=== PATIENT | male | born 1960 | race Caucasian/White ===

== ENCOUNTER → 2016-11-02 | Outpatient (CLI) | payer OTHER | END | disposition home or self-care (01) | LOC: GMAH 10:16 | PROVIDERS: ATTEND Family Medicine | DX: Z12.5 Encounter for screening for malignant neoplasm of prostate (principal); Z00.00 Encounter for general adult medical examination without abnormal findings ==

== ENCOUNTER → 2018-04-06 | Outpatient (CLI) | payer OTHER ==
--- NOTE | 2018-04-06 11:50 | CT ---
EXAM DESCRIPTION: Head CLINICAL HISTORY: DIZZINESS COMPARISON: None Available. TECHNIQUE: Contiguous axial images of the brain were obtained without the administration of intravenous contrast. This exam was performed according to our departmental dose-optimization program, which includes automated exposure control, adjustment of the mA and/or kV according to patient size and/or use of iterative reconstruction technique. FINDINGS: There is no acute intracranial hemorrhage or mass effect. Ventricular system is within normal limits. There is adequate parker-white matter differentiation. There is no skull fracture. There is mucoperiosteal thickening of the left maxillary sinus compatible with chronic sinusitis changes. There is atherosclerosis. IMPRESSION: No acute intracranial abnormalities. Electronically signed by: Zeke Hagen MD 04/06/2018 11:49 AM CDT
== END ==
LOC: CT 11:18
PROVIDERS: ATTEND Nurse Practitioner Family
DX: R42 Dizziness and giddiness (principal)

== ENCOUNTER 2018-06-22 10:08 | Emergency (ER) | payer OTHER ==
[2018-06-22] MEDS ORDERED: SODIUM CHLORIDE 0.9% 1000ML 1,000 ML IVS ONE (10:33)
[2018-06-22] MEDS ORDERED: KETOROLAC TROMETHAMINE INJ 30 MG/ML VIAL IV ONE (10:33)
--- NOTE | 2018-06-22 10:38 | ED.PDOC ---
History of Present Illness - General Chief Complaint: Abdominal Pain Time Seen by Provider: 06/22/18 10:32 Information Source: patient Exam Limitations: no limitations - History of Present Illness Initial Comments: patient comes in today with severe 10/10 abdominal pain. Patient states he awoke at 5 this morning with some mild discomfort by 6 and had localized to the epigastric areawith slight radiation to the right upper quadrant and straight through to his back. Patient states the pain is sharp, severe, and not worsening nor improving with movement. Patient had some dry heaving this morning but no current nausea. Patient has denied constipation and states he's had a normal bowel movement yesterday. He does have a history of some heartburn and takes Prilosec [id number]-shluyfk for it. Patient denies any fever , chills, cough or cold symptoms. He was in his normal usual health before going to bed and did not alter his usual activity including no increased alcohol use, activity, or diet changes. Patient has a past medical history for hyperlipidemia and hypertension. He does not smoke but drinks 5-6 glasses of wine a day and does not take illicit substances. Patient has no known drug allergies. Patient's only abdominal surgery has been an umbilical hernia repair that was several years ago and has been well healed without complications thus far. Abdominal Pain Onset Location: epigastric Pain Radiation: back Quality: severe, steady Timing/Duration: 4-6 hours, getting worse Improving Factors: nothing Worsening Factors: nothing Associated Symptoms: nausea/vomiting Review of Systems - Review of Systems Constitutional: States: no symptoms reported. Denies: chills, fever EENTM: States: no symptoms reported. Denies: eye pain, ear pain, nose pain, throat pain Respiratory: States: no symptoms reported. Denies: cough, short of breath, wheezing Cardiology: States: no symptoms reported. Denies: chest pain, edema, palpitations Gastrointestinal/Abdominal: States: abdominal pain, nausea. Denies: constipation, diarrhea, vomiting Genitourinary: States: no symptoms reported. Denies: dysuria, frequency, hematuria Musculoskeletal: States: back pain Skin: States: no symptoms reported Neurological: States: no symptoms reported Past Medical History (General) - Patient Medical History Hx MRSA: Yes - neck 2008 MRSA Source:: Wound Family Medical History - Family History Mother Family History: No Known Physical Exam - Physical Exam General Appearance: Alert, Restless Eyes, Ears, Nose, Throat Exam: PERRL/EOMI, normal ENT inspection, TMs normal, pharynx normal Neck: non-tender, full range of motion, supple Respiratory: chest non-tender, lungs clear, normal breath sounds, no respiratory distress Cardiovascular/Chest: normal peripheral pulses, regular rate, rhythm, no edema, no gallop, no murmur Gastrointestinal/Abdominal: soft, distended, other - TTP at the epigastric area with on rebound and no guarding, hypoactive BS Back Exam: normal inspection, no CVA tenderness, no vertebral tenderness Extremity: normal range of motion, non-tender Neurologic: alert, oriented x 3 Progress - Progress Progress: patient is feeling much better. Pain is now moderate 5/5 and improving. Patient understands he should stick to a low fat diet. Discussed need for follow up with PCP to discuss if needs surgical consult. Ultram for pain over the weekend. Return to ER for increased pain, intractable emesis, or change in symptoms. Would get OTC Gas x and Maalox and take TID as well. 06/22/18 12:37 - Results/Orders Results/Orders: 06/22/18 10:33 Sodium Chloride 0.9% 1000ML [Ns 1000 ml] 1,000 ml IVS ONCE 06/22/18 11:02 URINALYSIS Stat Laboratory Results WBC 8.4 K/mm3 (4.8-10.8) 06/22/18 10:37 RBC 4.09 M/mm3 (4.70-6.10) L 06/22/18 10:37 Hgb 13.4 gm/dL (14.0-18.0) L 06/22/18 10:37 Hct 39.0 % (42.0-52.0) L 06/22/18 10:37 MCV 95.4 fl (80.0-94.0) H 06/22/18 10:37 MCH 32.7 pg (27.0-31.0) H 06/22/18 10:37 MCHC 34.4 g/dL (33.0-37.0) 06/22/18 10:37 RDW 13.0 % (11.5-14.5) 06/22/18 10:37 Plt Count 368 K/mm3 (130-400) 06/22/18 10:37 MPV 7.3 fl (7.40-10.4) L 06/22/18 10:37 Absolute Neuts (auto) 6.80 K/uL (1.8-6.8) 06/22/18 10:37 Absolute Lymphs (auto) 1.00 K/uL (1.0-3.4) 06/22/18 10:37 Absolute Monos (auto) 0.50 K/uL (0.2-0.8) 06/22/18 10:37 Absolute Eos (auto) 0.00 K/uL (0.0-0.4) 06/22/18 10:37 Absolute Basos (auto) 0.10 K/uL (0.0-0.1) 06/22/18 10:37 Neutrophils % 80.6 % (42.0-78.0) H 06/22/18 10:37 Lymphocytes % 12.0 % (20.0-50.0) L 06/22/18 10:37 Monocytes % 5.9 % (2.0-9.0) 06/22/18 10:37 Eosinophils % 0.3 % (1.0-5.0) L 06/22/18 10:37 Basophils % 1.2 % (0.0-2.0) 06/22/18 10:37 Sodium 139 mmol/L (135-145) 06/22/18 10:37 Potassium 3.8 mmol/L (3.6-5.0) 06/22/18 10:37 Chloride 106 mmol/L (101-111) 06/22/18 10:37 Carbon Dioxide 25 mmol/L (21-31) 06/22/18 10:37 Anion Gap 11.8 (12-18) L 06/22/18 10:37 BUN 11 mg/dL (7-18) 06/22/18 10:37 Creatinine 0.86 mg/dL (0.6-1.3) 06/22/18 10:37 BUN/Creatinine Ratio 12.8 (10-20) 06/22/18 10:37 Random Glucose 132 mg/dL (70-105) H 06/22/18 10:37 Serum Osmolality 278.8 mOsm/L (275-295) 06/22/18 10:37 Calcium 9.9 mg/dL (8.4-10.2) 06/22/18 10:37 Total Bilirubin 0.6 mg/dL (0.2-1.0) 06/22/18 10:37 AST 39 IU/L (10-42) 06/22/18 10:37 ALT 33 IU/L (10-60) 06/22/18 10:37 Alkaline Phosphatase 40 IU/L (42-121) L 06/22/18 10:37 Serum Total Protein 7.2 gm/dL (6.4-8.2) 06/22/18 10:37 Albumin 4.1 g/dl (3.2-5.5) 06/22/18 10:37 Globulin 3.1 gm/dL (2.3-3.5) 06/22/18 10:37 Albumin/Globulin Ratio 1.3 (1.1-1.9) 06/22/18 10:37 Amylase 57 U/L (28-100) 06/22/18 10:37 Lipase 32 U/L (22-51) 06/22/18 10:37 CT of abdomen and pelvis: fatty liver disease and cholelithiasis without evidence of obstruction or appendicitis. Departure - Departure Clinical Impression: Biliary colic Disposition: Discharge to Home or Self Care Condition: Fair Departure Forms: ED Discharge - Pt. Copy, Patient Portal Self Enrollment Instructions: DI for Abdominal Pain-Adult Diet: low fat, low cholesterol Referrals: Med Mccann MD [Primary Care Provider] - 1-2 Weeks Prescriptions: Tramadol HCl [Ultram] 50 mg PO TID PRN 5 Days #15 tab PRN Reason: Pain Home Medications: Ambulatory Orders Bumetanide [Bumex] 1 mg PO DAILY 06/22/18 Ezetimibe-Simvastatin [Vytorin 10-40 mg] 1 tab PO DAILY 06/22/18 Fish Oil 06/22/18 Garlic 06/22/18 Lisinopril 40 mg PO DAILY 06/22/18 Multiple Vitamins W/ Minerals [Multivitamin Adults] 1 tab PO DAILY 06/22/18 Nifedipine [Nifedipine ER] 30 mg PO DAILY 06/22/18 Omeprazole [Omeprazole] 40 mg .ROUTE DAILY 06/22/18 Tramadol HCl [Ultram] 50 mg PO TID PRN 5 Days #15 tab 06/22/18 Turmeric 06/22/18 Vitamin C 06/22/18 Additional Instructions: ollow up with PCP Sunday to discuss if needs surgical consult. Ultram for pain over the weekend. Return to ER for increased pain, intractable emesis, or change in symptoms. Would get OTC Gas x and Maalox and take TID as well.
[2018-06-22 10:46] VITALS: TEMP 98.9
--- NOTE | 2018-06-22 11:07 | CT ---
PROCEDURE: Abdoment/Pelvis w/o Contrast HISTORY: abominal pain Indication: Same as above Comparison: None Technique: CT of the abdomen and pelvis was done without intravenous contrast. Images were obtained from the lung base to the level of the pubic symphysis in axial plane, followed by orthogonal sagittal and coronal reconstruction. Oral contrast was not given for the study. This exam was performed according to our departmental dose-optimization program, which includes automated exposure control, adjustment of the mA and/or KV according to the patient's size and/or use of iterative reconstruction technique. FINDINGS: Images through the lung bases do not show any focal infiltrates or pleural effusions. There is tiny intraluminal gallstone in the neck of the gallbladder. There is fatty metamorphosis of the liver The pancreas, spleen and the bilateral adrenal glands appear unremarkable, given the limitation of lack of intravenous contrast. The bilateral kidneys do not show any evidence of hydronephrosis or nephrolithiasis. The bilateral ureters and the bilateral periureteral soft tissues and fat planes are unremarkable. The urinary bladder is unremarkable, without any evidence of wall thickening, calculi or filling defects. The small bowel appears unremarkable, without any evidence of small bowel obstruction or bowel wall thickening. There is no CT evidence of acute appendicitis, pericecal inflammatory change or ileocecal mesenteric adenitis. The ileocecal junction appears unremarkable. There is no CT evidence of acute colonic diverticulitis or colitis or large bowel obstruction. There is no pathological lymphadenopathy in the retroperitoneum or in the pelvic region. There is no evidence of free fluid or free air in the abdomen or the pelvic region. There is no clinically significant abdominal aortic aneurysm. There is no clinically significant inguinal or ventral hernia. The visualized lumbar spine shows multilevel degenerative change. The paravertebral soft tissues are unremarkable. The remainder of the pelvic structures are unremarkable. IMPRESSION: Fatty metamorphosis of the liver without hepatomegaly and cholelithiasis Electronically signed by: Paul Velasco MD 06/22/2018 11:05 AM HEALTH ANALYST Workstation: [id number]
[2018-06-22] MEDS ORDERED: ALUM & MAG HYDROX-SIMETHICONE 30 ML, LIDOCAINE VISCOUS 2% 15 ML PO ONE ×4 (11:13→11:32)
[2018-06-22] MEDS ORDERED: ALUM & MAG HYDROX-SIMETHICONE 30 ML UD ONE ×2 (11:15→11:34)
[2018-06-22] MEDS ORDERED: LIDOCAINE HCL 2% (MOUTH-THROAT) 15 ML UD ONE ×2 (11:15→11:34)
[2018-06-22 13:03] VITALS: BP 131/68; O2SAT 96
== END 2018-06-22 12:55 | disposition home or self-care (01) ==
LOC: ER 10:08
DX: K80.20 Calculus of gallbladder without cholecystitis without obstruction (principal); K76.0 Fatty (change of) liver, not elsewhere classified; E78.5 Hyperlipidemia, unspecified; I10 Essential (primary) hypertension; Z87.19 Personal history of other diseases of the digestive system; Z98.890 Other specified postprocedural states
CPT/HCPCS: 36415; 74176; 80053; 81001; 82150; 83690; 85025; J1885; J7030

== ENCOUNTER 2018-06-23 23:37 | Inpatient (IN) | payer OTHER ==
--- NOTE | 2018-06-24 00:18 | ED.PDOC ---
History of Present Illness - General Chief Complaint: Abdominal Pain Stated Complaint: abdominal pain Time Seen by Provider: 06/24/18 00:18 Information Source: patient Exam Limitations: no limitations - History of Present Illness Initial Comments: Haseeb Schultz 57 y/o male seen initially early Sunday am with biliary colic and cholelithiasis from CT ABD/p done showing gallstone gallbladder neck and was sent home after pain eased up a little bit but tonight had sharp stabbing pain mid abdomen as well as distention.Had small watery BM after taking MOM.Had felt nauseated so ate a little bit since this am. Abdominal Pain Onset Location: generalized abdomen Pain Radiation: no radiation Quality: intermittent, sharpness, stabbing Timing/Duration: 24 hours Improving Factors: nothing Worsening Factors: nothing Associated Symptoms: fever/chills, nausea/vomiting Review of Systems - Review of Systems Constitutional: States: no symptoms reported EENTM: States: no symptoms reported Respiratory: States: no symptoms reported Cardiology: States: no symptoms reported Gastrointestinal/Abdominal: States: see HPI Genitourinary: States: no symptoms reported Musculoskeletal: States: no symptoms reported Skin: States: no symptoms reported Past Medical History (General) - Patient Medical History Hx Stroke: No Hx of COPD: No Hx Congestive Heart Failure: No Hx Hypertension: Yes Hx Thyroid Disease: No Hx Diabetes: No Hx Gastroesophageal Reflux: Yes Hx MRSA: Yes - neck 2008 MRSA Source:: Wound Surgical History: other - hernia repair - Vaccination History Hx Influenza Vaccination: Yes - Social History Hx Physical Abuse: No Hx Emotional Abuse: No - Triage Comment ED Triage Comment: upper abdominal pain. Seen in ER yesterday for same, returned tonyue Family Medical History - Family History Mother Family History: No Known Physical Exam - Physical Exam General Appearance: Alert, Anxious, No apparent distress Eyes, Ears, Nose, Throat Exam: normal ENT inspection, pharynx normal Neck: non-tender, supple, normal inspection Respiratory: lungs clear, normal breath sounds, no respiratory distress Cardiovascular/Chest: normal peripheral pulses, regular rate, rhythm, no murmur Peripheral Pulses: No deficit Gastrointestinal/Abdominal: distended, tenderness, other - tense Back Exam: normal inspection, no CVA tenderness, no vertebral tenderness Extremity: normal inspection, no calf tenderness Skin Exam: normal color, warm/dry Progress - Progress Progress: 06/24/18 02:33 Vital Signs - 8 hr 06/24/18 00:01 Temperature 102.9 F H Pulse Rate [ 140 H Right] Respiratory 22 Rate Blood Pressure 149/104 [Left Arm] O2 Sat by Pulse 94 L Oximetry - Results/Orders Results/Orders: 06/24/18 00:19 IV Care:Saline Lock per Protoc QSHIFT URINALYSIS Stat 06/24/18 01:10 NG [Tube(s):Nasogastric,Insertion] PRN 06/24/18 02:30 BLOOD CULTURE Stat 06/24/18 02:40 Piperacillin/Tazobactam [Zosyn] 3.375 gm Sodium Chloride 0.9% 100Ml [NS (NACL 0.9%) 100ml] 100 ml IVPB ONCE Laboratory Results - last 24 hr 06/24/18 06/24/18 06/24/18 00:19 00:19 00:58 WBC 17.4 H RBC 4.24 L Hgb 13.9 L Hct 40.9 L MCV 96.2 H MCH 32.7 H MCHC 34.1 RDW 13.1 Plt Count 342 MPV 7.2 L Absolute Neuts (auto) 15.20 H Absolute Lymphs (auto) 1.10 Absolute Monos (auto) 1.00 H Absolute Eos (auto) 0.00 Absolute Basos (auto) 0.10 Neutrophils % 87.1 H Lymphocytes % 6.5 L Monocytes % 5.7 Eosinophils % 0.1 L Basophils % 0.6 PT 11.8 H INR 1.18 H PTT (SP) 28.8 Sodium 134 L Potassium 3.3 L Chloride 102 Carbon Dioxide 21 Anion Gap 14.3 BUN 11 Creatinine 0.95 BUN/Creatinine Ratio 11.6 Random Glucose 181 H D Serum Osmolality 272.2 L Lactic Acid 1.5 Calcium 8.7 Magnesium 1.1 L Total Bilirubin 1.6 H D Direct Bilirubin 0.4 H Indirect Bilirubin 1.2 H AST 24 ALT 23 Alkaline Phosphatase 45 Creatine Kinase 125 CK-MB (CK-2) 1.8 CK-MB (CK-2) % Not Reportable Troponin I 0.03 Serum Total Protein 7.4 Albumin 4.0 Lipase 23 D Discuss test result with patient and hospital admit. - EKG/XRAY/CT XRAY: abdomen - non specific bowel gas pattern Departure - Departure Clinical Impression: Abdominal distention, Gallstone ileus Abdominal pain Qualifiers: Abdominal location: generalized Qualified Code(s): R10.84 - Generalized abdominal pain Cholelithiasis NOS Qualifiers: Cholelithiasis location: gallbladder Cholecystitis presence: without cholecystitis Biliary obstruction: without biliary obstruction Qualified Code(s) : K80.20 - Calculus of gallbladder without cholecystitis without obstruction Time of Disposition: 03:06 Disposition: Admit Patient Condition: Fair Departure Forms: Patient Portal Self Enrollment Referrals: Med Mccann MD [Primary Care Provider] - 1-2 Weeks Home Medications: Ambulatory Orders Bumetanide [Bumex] 1 mg PO DAILY 06/22/18 Ezetimibe-Simvastatin [Vytorin 10-40 mg] 1 tab PO DAILY 06/22/18 Fish Oil 06/22/18 Garlic 06/22/18 Lisinopril 40 mg PO DAILY 06/22/18 Multiple Vitamins W/ Minerals [Multivitamin Adults] 1 tab PO DAILY 06/22/18 Nifedipine [Nifedipine ER] 30 mg PO DAILY 06/22/18 Omeprazole [Omeprazole] 40 mg .ROUTE DAILY 06/22/18 Tramadol HCl [Ultram] 50 mg PO TID PRN 5 Days #15 tab 06/22/18 Turmeric 06/22/18 Vitamin C 06/22/18 Decision To Admit - Decistion To Admit Decision to Admit Reason: Admit from ER Decision to Admit Date: 06/24/18 - D/W Dr. Todd-Surgeon;Palak Bartlett-ANP/ Hospitalist Decision to Admit Time: 03:03
[2018-06-24] MEDS ORDERED: SODIUM CHLORIDE 0.9% 1000ML 1,000 ML IVS ONE (00:19)
[2018-06-24] MEDS ORDERED: KETOROLAC TROMETHAMINE INJ 30 MG/ML VIAL IV ONE (00:19)
[2018-06-24] MEDS ORDERED: ONDANSETRON INJ 4 MG/2 ML VIAL IV ONE (00:32)
[2018-06-24] MEDS ORDERED: MAGNESIUM SULFATE PREMIX 2GM 2 GM in PREMIX BAG 1 BAG IVPB ONE (00:59)
[2018-06-24] MEDS ORDERED: MAGNESIUM SULFATE PREMIX 2GM 50 ML IVPB ONE (01:26)
[2018-06-24] MEDS ORDERED: fentaNYL CITRATE INJ 50 MCG/ML AMP IV ONE (02:03)
[2018-06-24] MEDS ORDERED: PROMETHAZINE HCL INJ 25 MG/ML VIAL IM ONE (02:04)
[2018-06-24] MEDS ORDERED: PIPERACILLIN/TAZOBACTAM 4.5 GM in SODIUM CHLORIDE 0.9% 100ML 100 ML IVPB ONE (02:31)
--- NOTE | 2018-06-24 02:36 | RAD ---
EXAM: Acute abdominal series. INDICATION: Abdominal pain, acute. COMPARISON: None. FINDINGS: Cardiac silhouette: Unremarkable. Tamara: Unremarkable. Lobar consolidation: None. Pleural effusion: None. Pneumothorax: None. Other: None. Intraperitoneal free air: Negative. Bowel: The nasogastric tube is in satisfactory position. There is gaseous distention of the colon. No dilated loops of small bowel are identified. Bones: Unremarkable. Other: None. IMPRESSION: 1. Nonspecific, nonobstructed bowel gas pattern. Electronically signed by: Noe Newby MD 06/24/2018 2:35 AM [facility] Workstation: [id number]
[2018-06-24] MEDS ORDERED: PIPERACILLIN/TAZOBACTAM 3.375 GM in SODIUM CHLORIDE 0.9% 100ML 100 ML IVPB ONE (02:40)
[2018-06-24] MEDS ORDERED: SODIUM CHLORIDE 0.9% 100ML 100 ML IVPB ONE ×4 (02:41→19:58)
[2018-06-24] MEDS ORDERED: PIPERACILLIN/TAZOBACTAM 3.375 GM VIAL IVPB ONE ×4 (02:41→19:57)
--- NOTE | 2018-06-24 03:09 | HP ---
SUPERVISING PHYSICIAN: Prasanth Santacruz MD CHIEF COMPLAINT: Abdominal pain with some fever, chills and nausea for about one week. HISTORY OF PRESENT ILLNESS: This is a 57-year-old male patient who has had some diffuse abdominal pain over the last week or so. Sunday, he actually came to the Emergency Room and CT of the abdomen was done. CT at that time showed fatty metamorphosis of the liver without hepatomegaly with cholelithiasis. He was sent home and given some laxatives and then it progressively worsened to the point that he had several bouts of diarrhea in the last two days. He also had dry heaves with fever, chills and diffuse abdominal pain. His right side hurt much worse than his left side. He was seen again in the Emergency Room and had abdominal distention with stabbing pain , watery diarrhea. His WBCs were at 17,400 and he had a left shift on differential. Hemoglobin was 13.9 with hematocrit 40.9. Sodium was slightly low at 1.34 with potassium 3.3. Lactic acid was 1.5, bilirubin was high at 1.6 with 0.4 direct bilirubin and 1.2 indirect bilirubin. Liver enzymes were within normal limits. Lipase was 23. Urinalysis showed 100 urine protein, 15 urine ketones, positive urine nitrites, 3 to 5 urine WBCs and 2 urine bacteria. He was given some fluids. Blood cultures were drawn. Urine cultures were ordered. He was given some fluids and Zosyn as well as some Ketoralac and some Dilaudid. He started on Zosyn and pantoprazole. Dr. Todd was called from the Emergency Room and he agreed that I should admit the patient to the Floor and he would see the patient in consult. PAST MEDICAL HISTORY: 1. Gout. 2. Benign prostatic hypertrophy. 3. Hypertension. 4. Gastroesophageal reflux disease. 5. Hyperlipidemia. PAST SURGICAL HISTORY: 1. Umbilical hernia repair. 2. Right hand surgery. 3. Colonoscopy 9 years ago. OUTPATIENT MEDICATIONS: 1. Lisinopril. 2. Bumetanide. 3. Nifedipine. 4. Vytorin. 5. Omeprazole. ALLERGIES: NO KNOWN DRUG ALLERGIES. SOCIAL HISTORY: He quit smoking about 15 years ago. He drinks about 5 to 6 glasses of wine daily. He denies any illicit drug use. He lives in [place]. He is . REVIEW OF SYSTEMS: GENERAL: Positive for fatigue and fever. Negative for weight changes. HEENT: Negative for sinus symptoms, ear pain, vision changes or sore throat. RESPIRATORY: Negative for wheezing, coughing or shortness of breath. CARDIAC: Negative for chest pain, palpitations or tachycardia. GASTROINTESTINAL: As per history of present illness. GENITOURINARY: Negative for hematuria, dysuria or polyuria. SKIN: Negative for lesions or rashes. NEUROLOGIC: Negative for headache, dizziness or seizures. PHYSICAL EXAMINATION: VITAL SIGNS: Temperature 102.9 on admission. It is now 100.3. Heart rate was as high as 140, now 88 to 110. Blood pressure 125/75. Respiratory rate 18. O2 saturation 91% on room air. GENERAL: This is a 57-year-old male patient who is lying in his hospital bed. He is in no acute distress. HEENT: Normocephalic, atraumatic. Pupils are equal and reactive. Oropharynx is clear. NECK: Supple without mass. RESPIRATORY: Essentially clear to auscultation bilaterally. CHEST: There is equal rise and fall of the chest with inspiration and expiration. CARDIOVASCULAR: Regular rate and rhythm. Heart rate at times slightly tachycardic. GASTROINTESTINAL: Abdomen is soft, diffusely tender, more so in the right upper quadrant than the other four quadrants. Bowel sounds are positive. EXTREMITIES: No cyanosis, clubbing or edema. NEUROLOGIC: Awake, alert and oriented times three. LABORATORY: Labs and films are as per history of present illness. IMPRESSION: 1. Cholelithiasis with acute cholecystitis, being followed by Dr. Todd, general surgeon. 2. Urinary tract infection. 3. Gouty arthritis. 4. Hypertension. 5. Gastroesophageal reflux disease. 6. Hyperlipidemia. PLAN: We will admit the patient to the hospital. I have consulted Dr. Todd and he will do a cholecystectomy this morning. He has been NPO overnight and has received fluids. I have also restarted his home medications, but those will not start until he is after he is back from surgery. I will defer all operative issues per Dr. Todd. He has been continued on Zosyn that he received while in the Emergency Room. We will also monitor his cultures closely. Encourage good pulmonary hygiene. We will monitor the patient closely and follow as needed. [facility][id number] [facility]
[2018-06-24] MEDS ORDERED: SODIUM CHLORIDE 0.9% (FLUSH) 10 ML SYG IV PRN (04:04)
[2018-06-24] MEDS ORDERED: ONDANSETRON INJ 4 MG/2 ML VIAL IV PRN ×2 (04:04→13:02)
[2018-06-24] MEDS: IV SET AND CAP CHANGE INJ INJ SCH (04:30)
[2018-06-24] MEDS: KCL 40 MEQ/D5 1/2NS 1,000 ML IVS PRN ×3 (06:00→22:24)
[2018-06-24] MEDS: PIPERACILLIN/TAZOBACTAM 3.375 GM in SODIUM CHLORIDE 0.9% 100ML 100 ML IVPB SCH ×3 (06:01→22:24)
[2018-06-24] MEDS: PANTOPRAZOLE SODIUM IV 40 MG VIAL IV SCH (06:02)
[2018-06-24] MEDS: fentaNYL CITRATE INJ 50 MCG/ML AMP IV PRN (08:22)
[2018-06-24] MEDS: SODIUM CHLORIDE 0.9% (FLUSH) 10 ML SYG IV SCH ×2 (08:35→20:53)
[2018-06-24] MEDS ORDERED: HEPARIN SODIUM (PORCINE) 10,000 UNITS/ML VIAL ONE (09:49)
[2018-06-24] MEDS ORDERED: BUPIVACAINE 0.25% W/EPI 50 ML VIAL INJ ONE (09:49)
[2018-06-24] MEDS ORDERED: DEXAMETHASONE INJ 10 MG/ML VIAL IV ONE (10:00)
[2018-06-24] MEDS ORDERED: PROPOFOL 200 MG/20 ML VIAL IV ONE (10:00)
[2018-06-24] MEDS ORDERED: PHENYLEPHRINE INJ 1ML 10 MG/ML VIAL IV ONE (10:00)
[2018-06-24] MEDS ORDERED: SODIUM CHLORIDE 0.9% 50 ML VIAL INJ ONE (10:00)
[2018-06-24] MEDS ORDERED: raNITIdine HCL INJ 25 MG/ML VIAL IV ONE (10:00)
[2018-06-24] MEDS ORDERED: LIDOCAINE 1% 10 ML VIAL INJ ONE (10:00)
[2018-06-24] MEDS ORDERED: METOCLOPRAMIDE HCL INJ 10 MG/2 ML VIAL IV ONE (10:00)
[2018-06-24] MEDS ORDERED: ROCURONIUM BROMIDE 10 MG/ML VIAL ONE (10:39)
[2018-06-24] MEDS ORDERED: MIDAZOLAM INJ 2 MG/2 ML VIAL ONE (10:39)
[2018-06-24] MEDS ORDERED: fentaNYL CITRATE INJ 50 MCG/ML AMP ONE (10:39)
--- NOTE | 2018-06-24 10:47 | CONS ---
DATE OF CONSULTATION: 06/24/18 HISTORY OF PRESENT ILLNESS: The patient is a 57-year-old male who has had some abdominal discomfort for some time. On Sunday, it worsened after eating [place] food the night before where he had severe right upper quadrant pain with some radiation to the back. His white blood cell count and liver function tests were essentially normal at that time. He was discharged home with no instructions as to diet or otherwise. He came back to the Emergency Room early this morning. CT scan was obtained for the same symptoms which revealed a stone in the neck of the gallbladder with some inflammatory process. His bilirubin went up to 1.9. His white count was elevated and he was admitted with a presumed diagnosis of cholelithiasis and cholecystitis. PAST MEDICAL HISTORY: 1. Hypertension. 2. Hypercholesterolemia. PAST SURGICAL HISTORY: 1. Umbilical hernia repair. CURRENT MEDICATIONS: 1. Bumex. 2. Nifedipine. 3. Omeprazole. 4. Ultram. 5. Lisinopril. 6. Vytorin. 7. Garlic. 8. Ascorbic acid. 9. Tumeric. ALLERGIES: NO KNOWN DRUG ALLERGIES. FAMILY HISTORY: Positive for heart disease, cholesterol issues. SOCIAL HISTORY: The patient is and works in his [employer] business. He does not smoke. He does use alcohol, drinking wine on an almost daily basis. REVIEW OF SYSTEMS: There has been no weight loss. No history of jaundice. He does complain of abdominal distension. Uncertain as to whether or not he has had a colonoscopy in the past. PHYSICAL EXAMINATION: GENERAL: The patient is awake, alert, cooperative, in mild to moderate distress. VITAL SIGNS: Temperature 100.3. HEENT: Sclerae nonicteric. He has a nasogastric tube in his nostril. Mucous membranes moist. NECK: Without adenopathy. BACK: Without CVA tenderness. CHEST: Equal breath sounds anteriorly. ABDOMEN: Soft, distended, diffusely tender, worse in the right upper quadrant without mass. He has a well-healed surgical scar at the umbilicus from a hernia repair. RECTAL: Deferred. EXTREMITIES: Without cyanosis, clubbing or edema. LABORATORY: White count 16,000 this morning at 5. At midnight, it was 17. Hemoglobin is down to 13. Platelet count 308,000, 90% neutrophils. Chemistries revealed bilirubin of 1.9. It was 1.6 initially. Otherwise, his liver functions are within normal limits. Potassium 3.1, creatinine 1.15. CT scan from Sunday revealed an intraluminal gallstone in the neck of the gallbladder and fatty metamorphosis of the liver. There was no hydronephrosis or stones noted in the kidneys and ureters. A flat and upright abdominal x-ray at the time of admission revealed no significant pathology. ASSESSMENT: 1. Cholelithiasis with acute cholecystitis or at least biliary colic. PLAN: The risks, benefits and alternatives to laparoscopic cholecystectomy with cholangiography along with wedge biopsy of the liver for the fatty infiltration of the liver was discussed with the patient in the presence of his family. Questions were answered. We will proceed with cholecystectomy. He has been given Zosyn from the Emergency Room. This will be continued. [facility][id number] [facility]
[2018-06-24] MEDS ORDERED: SUCCINYLCHOLINE CHLORIDE 200 MG/10 ML VIAL ONE (11:01)
[2018-06-24] MEDS ORDERED: ELECTROLYTE-A 1,000 ML IVS ONE ×2 (11:02→11:39)
[2018-06-24] MEDS ORDERED: metroNIDAZOLE IV PREMIX 500MG 100 ML IVPB ONE ×2 (11:52→19:57)
[2018-06-24] MEDS ORDERED: HYDROmorphone HCL INJ 2 MG/ML VIAL ONE (11:56)
[2018-06-24] MEDS ORDERED: SUGAMMADEX SODIUM 200 MG/2 ML VIAL IV ONE (12:23)
[2018-06-24] MEDS ORDERED: HYDROmorphone HCL INJ 2 MG/ML VIAL IV PRN (13:02)
[2018-06-24] MEDS ORDERED: PIPERACILLIN/TAZOBACTAM 3.375 GM in SODIUM CHLORIDE 0.9% 100ML 100 ML IVPB SCH (13:30)
--- NOTE | 2018-06-24 17:54 | OP ---
DATE OF PROCEDURE: 06/24/18 PREOPERATIVE DIAGNOSIS: 1. Symptomatic cholelithiasis. 2. Fatty infiltration of the liver. POSTOPERATIVE DIAGNOSIS: 1. Symptomatic cholelithiasis. 2. Fatty infiltration of the liver. 3. Acute gangrenous cholecystitis. SURGICAL PROCEDURE: 1. Laparoscopic cholecystectomy with intraoperative cholangiography using fluoroscopy and wedge biopsy right lobe of the liver. SURGEON: Silver Todd M.D. EELER: None. ANESTHESIA: Local infiltration of 0.25% Marcaine with Epinephrine and general endotracheal anesthesia. INDICATION FOR SURGERY: The patient is a 57 year-old male who has had approximately a 48 hours history of right upper quadrant pain. He has a leukocytosis, mild fever and is quite uncomfortable. After the risks, benefits , and alternatives to cholecystectomy were discussed with the patient in the presence of his family, he was brought to the Surgical Suite today. He was given IV Zosyn preoperatively on the floor when he was admitted. FINDINGS AT TIME OF PROCEDURE: The gallbladder was gangrenous. There was a large amount of purulent drainage in the right upper quadrant. Upon examination , the gallbladder appeared to be perforated. In the area there was one small stone. Intraoperative cholangiography revealed free flow into the duodenum with no filling defects or strictures noted. DESCRIPTION OF PROCEDURE: After adequate general endotracheal anesthesia was obtained, the patient was prepped and draped in the usual sterile manner. A surgical time out was taken. The supraumbilical area was infiltrated with local anesthesia and a vertical incision was made with a sharp knife. Dissection was carried down to the midline fascia using blunt dissection. Traction sutures were placed on either side of the midline. A small incision was made in the midline fascia and the peritoneum was opened bluntly. Karl trocar was introduced under direct vision into the abdominal cavity and fixed in place with the 20 mL balloon. At this point, CO2 was insufflated until a pressure of 12 mmHg was reached and the abdomen was tympanitic in all four quadrants. When this was done, the laparoscope was introduced which revealed inflammatory changes in the right upper quadrant with the omentum stuck to the anterior abdominal wall and purulent drainage. No other obvious pathology was identified. At this point, the patient was placed in reverse Trendelenburg position, turned to the left side. The upper abdominal ports were placed under direct vision. Immediately the first thing, what purulent drainage could be drained was suctioned off. The adhesions to the anterior abdominal wall were broken with mild blunt dissection. When this was done, the omentum was peeled off the gallbladder and the liver without any significant problem. The gallbladder was grasped, retracted anteriorly and laterally. Eventually dissection was carried down until the neck of the gallbladder could be obtained and this was retracted laterally. The triangle of Calot was then explored with the cystic duct and cystic artery identified and isolated. The cystic duct was hemoclipped once proximally. The cystic artery was hemoclipped proximally and distally and divided. A small incision was made in the cystic duct. The cholangiogram catheter was introduced through a separate stab wound in the right upper quadrant, introduced into the cystic duct and clipped in place. Cholangiograms were taken using fluoroscopy which revealed free flow into the duodenum with no filling defects or strictures noted. When this was done, the cystic duct catheter was removed. The cystic duct was hemoclipped three times distally and divided between the hemoclips. The gallbladder was then dissected free from the gallbladder bed of the liver using electrocautery and blunt dissection. It was placed in an EndoCatch bag and removed from the supraumbilical port site in the usual manner under direct vision. When this was done, the subhepatic space and subphrenic space were irrigated copiously with saline. The juan hepatis and the gallbladder bed of the liver were inspected. No bile leak or significant bleeding was identified. At this point, a wedge biopsy of the right lobe of the liver was performed using scissors. It was removed and sent for pathological evaluation. The cautery was then turned up to 50 on cautery only and hemostasis was obtained using electrocautery and hemostasis was noted to be adequate. Again, the subhepatic space and subphrenic space were irrigated copiously with saline and the effluent was noted to be mildly blood tinged. At this point a 15 Welsh round drain was placed in the subhepatic space in the gallbladder bed of the liver through the lateral port site. The lateral port was removed and the drain was sutured in place with #3-0 nylon ligature. The remaining upper abdominal ports were removed under direct vision. Adequate hemostasis was noted. The CO2, the laparoscope and the supraumbilical port were removed. The supraumbilical port site fascia was the closed with two [id number] sutures of #1-0 Vicryl. These were tightened and tied. The subcutaneous tissue was irrigated with saline. The subcutaneous fat was reapproximated with a single # 0 Vicryl suture above the umbilicus. Skin edges were approximated with 4-0 Vicryl subcuticular sutures, benzoin and Steri-Strips. Sterile dressings were applied. The J-P drain was set to appropriate length and closed to closed suction grenade drainage. The patient was awakened and taken to the Recovery Room in good and stable condition. Estimated blood loss was approximately 100 mL. All sponge, needle and instrument counts were correct. [facility][id number] [facility]
[2018-06-24] MEDS: metroNIDAZOLE IV PREMIX 500MG 500 MG in PREMIX BAG 1 BAG IVPB SCH (20:28)
[2018-06-25] MEDS: fentaNYL CITRATE INJ 50 MCG/ML AMP IV PRN (00:50)
[2018-06-25] MEDS ORDERED: metroNIDAZOLE IV PREMIX 500MG 100 ML IVPB ONE ×3 (01:48→19:47)
[2018-06-25] MEDS ORDERED: SODIUM CHLORIDE 0.9% 100ML 100 ML IVPB ONE ×3 (01:48→19:47)
[2018-06-25] MEDS ORDERED: PIPERACILLIN/TAZOBACTAM 3.375 GM VIAL IVPB ONE ×3 (01:48→19:47)
[2018-06-25] MEDS: HYDROcodone 5MG/APAP 325MG 1 EA TAB PO PRN ×2 (01:56→12:33)
[2018-06-25] MEDS: metroNIDAZOLE IV PREMIX 500MG 500 MG in PREMIX BAG 1 BAG IVPB SCH ×3 (04:07→19:54)
[2018-06-25] MEDS: PIPERACILLIN/TAZOBACTAM 3.375 GM in SODIUM CHLORIDE 0.9% 100ML 100 ML IVPB SCH ×3 (05:58→22:22)
[2018-06-25] MEDS: KCL 40 MEQ/D5 1/2NS 1,000 ML IVS PRN ×2 (06:08→18:48)
[2018-06-25] MEDS: PANTOPRAZOLE SODIUM IV 40 MG VIAL IV SCH (06:09)
[2018-06-25] MEDS: NIFEdipine XL 30 MG TAB PO SCH (09:24)
[2018-06-25] MEDS: LISINOPRIL 10 MG TAB PO SCH (09:24)
[2018-06-25] MEDS: SODIUM CHLORIDE 0.9% (FLUSH) 10 ML SYG IV SCH ×2 (09:25→21:42)
[2018-06-25] MEDS ORDERED: MAGNESIUM HYDROXIDE 30 ML UD PO ONE (10:10)
--- NOTE | 2018-06-25 19:43 | PN ---
DATE: 06/25/18 SUPERVISING PHYSICIAN: Prasanth Santacruz M.D. SUBJECTIVE: The patient has been walking in the hallways today. I am seeing him in his hospital room. He feels tired this afternoon and hopes he did not overdo his activity today, but denies any chest pain, nausea, vomiting or shortness of breath. OBJECTIVE: VITAL SIGNS: Temperature 99.4, heart rate 98, blood pressure 140/82 , respiratory rate 18, O2 sat 94% on room air. RESPIRATORY: Diminished at the bases, otherwise clear to auscultation. CARDIAC: Regular rate and rhythm. GASTROINTESTINAL: Abdomen is rounded. It is firm. He has a J-P drain to his right abdomen. It is filled with a small amount of serosanguinous fluid. Bowel sounds are hypoactive. NEUROLOGIC: He is awake, alert and oriented times three. LABORATORY: WBCs are 16,000 with hemoglobin 11.6, hematocrit 34.6. Electrolytes are basically within normal limits. Glucose 180, calcium is 7.9. Preliminary blood cultures show no growth after 24 hours. All other labs and films have been reviewed via the EMR. ASSESSMENT: 1. Abdominal pain status post laparoscopic cholecystectomy with intraoperative cholangiography, postoperative day #1. Operative procedure per Dr. Silver Todd, general surgeon. 2. Urinary tract infection. 3. Gouty arthritis. 4. Hypertension. 5. Gastroesophageal reflux disease. 6. Hyperlipidemia. PLAN: We will continue present supportive care. Operative issues will be per Dr. Silver Todd, general surgeon. Encouraged good pulmonary hygiene. His home medications have restarted. I have encouraged him to walk in the hallways. His blood sugars have been slightly elevated and I will monitor those tomorrow as we may need to put him on sliding scale insulin to keep his blood sugars under control. Otherwise will continue to monitor him closely and follow as needed. Dr. Santacruz is the collaborating physician available for consultation. [facility][id number] [facility]
[2018-06-26] MEDS: HYDROcodone 5MG/APAP 325MG 1 EA TAB PO PRN (00:50)
[2018-06-26] MEDS: KCL 40 MEQ/D5 1/2NS 1,000 ML IVS PRN ×2 (01:45→08:08)
[2018-06-26] MEDS ORDERED: PIPERACILLIN/TAZOBACTAM 3.375 GM VIAL IVPB ONE ×2 (03:25→09:20)
[2018-06-26] MEDS ORDERED: metroNIDAZOLE IV PREMIX 500MG 100 ML IVPB ONE (03:25)
[2018-06-26] MEDS ORDERED: SODIUM CHLORIDE 0.9% 100ML 100 ML IVPB ONE ×2 (03:26→09:20)
[2018-06-26] MEDS: metroNIDAZOLE IV PREMIX 500MG 500 MG in PREMIX BAG 1 BAG IVPB SCH (03:43)
[2018-06-26] MEDS: PANTOPRAZOLE SODIUM IV 40 MG VIAL IV SCH (06:20)
[2018-06-26] MEDS: PIPERACILLIN/TAZOBACTAM 3.375 GM in SODIUM CHLORIDE 0.9% 100ML 100 ML IVPB SCH (06:20)
[2018-06-26] MEDS ORDERED: PIPERACILLIN/TAZOBACTAM 3.375 GM in SODIUM CHLORIDE 0.9% 100ML 100 ML IVPB SCH (09:00)
[2018-06-26] MEDS: NIFEdipine XL 30 MG TAB PO SCH (09:27)
[2018-06-26] MEDS: LISINOPRIL 10 MG TAB PO SCH (09:27)
[2018-06-26] MEDS: SODIUM CHLORIDE 0.9% (FLUSH) 10 ML SYG IV SCH ×2 (09:28→21:03)
[2018-06-26] MEDS ORDERED: FUROSEMIDE INJ 40 MG/4 ML VIAL IV ONE (10:13)
[2018-06-26] MEDS ORDERED: AMOXICILLIN & POT CLAVULANATE 875 MG TAB PO SCH (10:30)
[2018-06-26] MEDS: metroNIDAZOLE 500 MG TAB PO SCH ×2 (10:30→18:04)
[2018-06-26] MEDS: AMOXICILLIN & POT CLAVULANATE 875 MG TAB PO SCH (21:04)
[2018-06-27] MEDS: metroNIDAZOLE 500 MG TAB PO SCH ×3 (02:07→18:25)
[2018-06-27] MEDS: HYDROcodone 5MG/APAP 325MG 1 EA TAB PO PRN ×2 (02:07→22:27)
[2018-06-27] MEDS: IV SET AND CAP CHANGE INJ INJ SCH (06:14)
[2018-06-27] MEDS: PANTOPRAZOLE SODIUM IV 40 MG VIAL IV SCH (06:15)
[2018-06-27] MEDS: SODIUM CHLORIDE 0.9% (FLUSH) 10 ML SYG IV SCH ×2 (09:00→20:05)
[2018-06-27] MEDS: NIFEdipine XL 30 MG TAB PO SCH (09:00)
[2018-06-27] MEDS: LISINOPRIL 10 MG TAB PO SCH (09:00)
[2018-06-27] MEDS: AMOXICILLIN & POT CLAVULANATE 875 MG TAB PO SCH ×2 (09:00→20:04)
--- NOTE | 2018-06-27 09:02 | PN ---
SUPERVISING PHYSICIAN: Prasanth Santacruz MD DATE: 06/26/18 SUBJECTIVE: The patient is doing well this morning. He is ambulating. He is still having a little bit of abdominal discomfort from edema and previous surgery, but no nausea or vomiting. He has been afebrile. He has had several bowel movements. OBJECTIVE: VITAL SIGNS: Temperature 98.5. Pulse 88. Blood pressure 147/80. Respirations 16. Saturation 96% on room air. I&Os show positive balance of 95 with 1525 in, 1430 out. He has had several bowel movements. Weight 103.1 kg, which is up from 101.69 kg yesterday. CHEST: Lungs clear to auscultation bilaterally. HEART: Regular rate and rhythm. ABDOMEN: Distended, but soft with hypoactive bowel sounds. ANGELO drain in the right upper quadrant and still continues to show serosanguineous fluid. NEUROLOGIC: Alert and oriented times three. LABORATORY: White count down to 13,400, hemoglobin 12.2, hematocrit 36.6, platelet count 398,000. Differential today shows a slight left shift. Chemistries show normal electrolytes today with potassium 3.8, BUN 17, creatinine 0.99. Liver functions within normal limits. MICROBIOLOGY: Blood cultures remain negative after 48 hours. Urine cultures show no growth at 36 hours. MRSA surveillance culture pending. RADIOLOGY: No additional radiographic studies today. ASSESSMENT: 1. Status post laparoscopic cholecystectomy with intraoperative cholangiography, postoperative day #2. 2. Cystitis with culture results negative. 3. Gouty arthritis, chronic. 4. Hypertension, chronic, stable. 5. Gastroesophageal reflux disease, stable. 6. Hyperlipidemia. PLAN: We will continue to follow the patient along with Dr. Todd and continue to encourage good pulmonary hygiene. I reviewed his medications and those have been resumed as appropriate. Dr. Todd has requested the patient transition to p.o. medications. Therefore, today we will stop Zosyn and start him on Augmentin and p.o. Flagyl with anticipation of hopefully discharging tomorrow. He is advancing his diet as tolerated and he remains on sliding scale. Until discharge and continued management as an outpatient, we will continue to monitor and treat as needed. [facility][id number] [facility]
[2018-06-27] MEDS ORDERED: BUMETANIDE 1 MG PO SCH (10:30)
[2018-06-27] MEDS ORDERED: NON-FORMULARY MEDICATION 1 EA MIS (Omeprazole [Omeprazole] 40 MG) PO SCH (10:30)
--- NOTE | 2018-06-27 10:56 | RAD ---
Study: Frontal and Lateral Views of the Chest. Indication: cough, CHF s/p Cholescystectomy Comparison: August 15, 2011. Impression: Cardiomegaly mild central pulmonary vascular congestion and interstitial edema. Mild basilar atelectasis. Underlying pneumonia not excluded. Tiny pleural effusion suspected. No pneumothorax. No acute osseous abnormality. Electronically signed by: Alan Panchal MD 06/27/2018 10:54 AM [facility]
[2018-06-27] MEDS ORDERED: ALBUTEROL SULFATE 2.5 MG/3 ML VIAL NEB PRN (11:23)
[2018-06-27] MEDS: BUMETANIDE TAB 2 MG TAB PO SCH (11:32)
[2018-06-27] MEDS: ALBUTEROL SULFATE 2.5 MG/3 ML VIAL NEB SCH ×3 (13:00→19:38)
[2018-06-27] MEDS ORDERED: OMEPRAZOLE CAP 20 MG CAP ONE (19:36)
[2018-06-28] MEDS: metroNIDAZOLE 500 MG TAB PO SCH ×2 (02:09→10:49)
--- NOTE | 2018-06-28 06:20 | RAD ---
EXAM: AP CHEST RADIOGRAPH CLINICAL INDICATION: Cough. COMPARISON: Compared to yesterday's chest radiograph performed at 1027 hours. FINDINGS: Cardiac size and pulmonary vasculature are normal. Resolution of pulmonary congestion. Residual mild left basilar scar versus atelectasis. No pleural effusions or pneumothorax. No hilar or mediastinal lymphadenopathy. No mediastinal widening. No extraluminal bowel gas under the hemidiaphragms. Bones are intact on this single view. IMPRESSION: Improving portable AP chest radiograph. Electronically signed by: Dante Moss MD 06/28/2018 6:18 AM [employer]
[2018-06-28] MEDS ORDERED: OMEPRAZOLE CAP 20 MG CAP PO SCH (06:30)
[2018-06-28 06:59] VITALS: TEMP 98.3
[2018-06-28] MEDS: AMOXICILLIN & POT CLAVULANATE 875 MG TAB PO SCH (07:58)
[2018-06-28] MEDS: NIFEdipine XL 30 MG TAB PO SCH (07:58)
[2018-06-28] MEDS: BUMETANIDE TAB 2 MG TAB PO SCH (07:58)
[2018-06-28] MEDS: LISINOPRIL 10 MG TAB PO SCH (08:00)
--- NOTE | 2018-06-28 08:07 | PN ---
SUPERVISING PHYSICIAN: Prasanth Santacruz MD DATE: 06/27/18 SUBJECTIVE: The patient has been ambulating. He has good control of his pain. He says his belly is not hurting quite as bad. He is coughing quite a bit, but not having any production. He has been afebrile and he continues to have bowel movements. OBJECTIVE: VITAL SIGNS: Temperature 98.9. Pulse 85. Blood pressure 131/82. Respirations 18. Saturation 97% on room air. I&Os show positive balance of 43 with 2225 in, 1742 out. Weight 102.8 kg, which is down yesterday from 103.1 kg. GENERAL: The patient appears to be in no acute distress, resting comfortably. He just finished ambulating. He is alert. CHEST: Diminished towards the bases without any rhonchi or rales. He does have a cough which is nonproductive. HEART: Regular rate and rhythm. ABDOMEN: Obese with ANGELO drain in place with continued serosanguineous fluid. Soft, positive bowel sounds. Tender to palpation consistent with postoperative changes. EXTREMITIES: No cyanosis, clubbing or edema. NEUROLOGIC: Alert and oriented times three. LABORATORY: White count 12,100, hemoglobin 12.2, hematocrit 36.7. Differential does show a resolving left shift. Platelet count 433,000. Electrolytes were not repeated as his chemistries have been fairly stable and normalized from 06/25/18. Pathology report is available with final diagnosis of gallbladder cholecystectomy with severe acute and chronic cholecystitis with right lobe of the liver wedge biopsy showing severe steatosis without significant fibrosis, inflammation, no evidence of active steatohepatitis. No evidence of increased hepatic iron. Still benign biliary microhamartoma. Please see that full report for details. MICROBIOLOGY: MRSA surveillance culture was negative for MRSA. Urine culture showed no growth at 36 hours. Blood cultures remain negative at 3 days. Influenza A and B was negative. RADIOLOGY: Chest x-ray today per radiologic interpretation showed cardiomegaly , mild central pulmonary vascular congestion and interstitial edema, mild basilar atelectasis, underlying pneumonia not excluded, but tiny pleural effusion suspected. No pneumothorax. ASSESSMENT: 1. Status post laparoscopic cholecystectomy with intraoperative cholangiography, postoperative day #3. 2. Severe steatosis of the liver without any significant fibrosis or inflammation noted on final diagnosis from pathology from liver wedge biopsy. 3. Concerns for some pulmonary congestion versus developing pneumonia as noted on radiographic studies, requiring initiation of aggressive pulmonary hygiene, continued diuretics and close monitoring. 4. Cystitis with culture results negative. 5. Gouty arthritis, chronic. 6. Chronic hypertension, stable. 7. Chronic gastroesophageal reflux disease, stable. 8. Hyperlipidemia. PLAN: We will plan to discharge the patient tomorrow as we will keep him today and diurese some of the fluid and recheck a CBC and chest x-ray in the morning to further rule out any underlying the patient process. Given that he had findings on chest x-ray for pulmonary edema versus pneumonia, we will give him Bumex today. He did have a dose of Lasix yesterday as well as we will initiate aggressive pulmonary hygiene and Xopenex treatments. Dr. Todd has written pain medicine for discharge and, again, we will hopefully discharge tomorrow as the patient is tolerating his p.o. Augmentin and Flagyl. On discharge, he will need continuation of 7 days of Flagyl and Augmentin and followup with Dr. Todd as scheduled. Until then, we will continue to monitor and treat as needed. [facility][id number] [facility]
[2018-06-28] MEDS: ALBUTEROL SULFATE 2.5 MG/3 ML VIAL NEB SCH (08:43)
[2018-06-28 10:11] VITALS: BP 174/89; O2SAT 95
--- NOTE | 2018-07-05 20:38 | DS ---
SUPERVISING PHYSICIAN: Prasanth Santacruz M.D. ADMISSION DIAGNOSIS: 1. Cholelithiasis with acute cholecystitis with consultation by Dr. Todd, general surgeon. 2. Urinary tract infection. 3. Gouty arthritis. 4. Hypertension. 5. Gastroesophageal reflux disease. 6. Hyperlipidemia. DISCHARGE DIAGNOSIS: 1. Status post laparoscopic cholecystectomy secondary to acute cholecystitis with intraoperative cholangiography, postoperative day #4. 2. Severe steatosis of the liver without any significant fibrosis or inflammation noted on final diagnosis from pathology from liver wedge biopsy. 3. Concerns for pulmonary congestion versus possible pneumonia as noted on radiographic studies but responding to initiation of aggressive pulmonary hygiene and diuretics prior to discharge. 4. Cystitis with culture results being negative. 5. Gouty arthritis, chronic. 6. Chronic hypertension, stable. 7. Chronic gastroesophageal reflux disease, stable. 8. Hyperlipidemia. REASON FOR HOSPITALIZATION: This is a 57-year-old male patient who has had some diffuse abdominal pain over the last week or so. Sunday, he actually came to the Emergency Room and CT of the abdomen was done. CT at that time showed fatty metamorphosis of the liver without hepatomegaly with cholelithiasis. He was sent home and given some laxatives and then it progressively worsened to the point that he had several bouts of diarrhea in the last two days. He also had dry heaves with fever, chills and diffuse abdominal pain. His right side hurt much worse than his left side. He was seen again in the Emergency Room and had abdominal distention with stabbing pain , watery diarrhea. His WBCs were at 17,400 and he had a left shift on differential. Hemoglobin was 13.9 with hematocrit 40.9. Sodium was slightly low at 1.34 with potassium 3.3. Lactic acid was 1.5, bilirubin was high at 1.6 with 0.4 direct bilirubin and 1.2 indirect bilirubin. Liver enzymes were within normal limits. Lipase was 23. Urinalysis showed 100 urine protein, 15 urine ketones, positive urine nitrites, 3 to 5 urine WBCs and 2 urine bacteria. He was given some fluids. Blood cultures were drawn. Urine cultures were ordered. He was given some fluids and Zosyn as well as some Ketoralac and some Dilaudid. He started on Zosyn and pantoprazole. Dr. Todd was called from the Emergency Room and he agreed that I should admit the patient to the Floor and he would see the patient in consult. Dr. Todd saw the patient in consultation at time of admission. LABORATORY STUDIES: Initial white count was 16,400, at discharge was 13,400. Hemoglobin and hematocrit were stable and on discharge was 12.7 a7.4. Platelet count 455,000. Differential did show a left shift which was persistent through hospitalization. PT was 11.8, PTT 28.1. Chemistry showed 134 sodium, 3.3 potassium, BUN 11, creatinine 0.95. Initial lactic acid 1.5, calcium 8.7, magnesium 1.1. Total bilirubin initially was 1.6, at discharge was 0.7, magnesium had gone up to 1.6 prior to discharge. All other liver functions were showing to be within normal limits including lipase which was 23. At discharge, electrolytes were showing to be within normal limits. BUN 17, creatinine 0.99. Urinalysis on admission showed greater than 1.030 specific gravity, 100 protein, 15 ketones, positive nitrites. Microscopic showing 0 RBCs , WBCs 3 to 5, 0 epithelials, 2+ bacteria, large amount of mucous. MICROBIOLOGY: Blood cultures showed no growth at 5 days. MRSA surveillance cultures show negative MRSA. Final culture results on urine showed no growth at 36 hours. CONSULTATION: Dr. Todd, general surgeon. Please see his note for details. PROCEDURES: 1. Laparoscopic cholecystectomy with intraoperative cholangiography using fluoroscopy and wedge biopsy right lobe of liver. POSTOPERATIVE DIAGNOSIS: 1. Symptomatic cholelithiasis. 2. Fatty liver infiltration. 3. Acute gangrenous cholecystitis. Please see his operative note for full details. RADIOLOGY: Initially in the E. R. he had an abdominal x-ray and per radiology interpretation showed nonspecific nonobstructive bowel gas pattern. He had chest x-rays on day of discharge. Final chest x-ray per radiology interpretation showed improving portable AP chest with residual mild left basilar scarring versus atelectasis. No pleural effusion or pneumothorax. No mediastinal widening. No extraluminal bowel gas under hemidiaphragms. Resolution of pulmonary congestion. HOSPITAL COURSE: Mr. Schultz was admitted on 06/24/18 for acute abdominal pain secondary to cholelithiasis and acute cholecystitis. He was seen in consultation by Dr. Todd on date of admission and was taken to the O. R. on 07/30 and had a laparoscopic cholecystectomy with intraoperative cholangiography urinary symptoms fluoroscopy and wedge biopsy of the right lobe of the liver. He had no intraoperative complications. He had a J-P drain in place after surgery which was removed prior to discharge. He was able to advance his diet and was ambulating without any complications. He did have little episodes of coughing and wheezing and was started on breathing treatments. It was felt that it was more related to fluid overload from intraoperative and postoperative management and was given Lasix and resumed on his other medications which resolved. He was showing to be clinically stable on date of discharge tolerating diet, ambulating with good pain control. Therefore he was to be discharged to followup with Dr. Todd. PLAN: Mr. Schultz was discharged on 06/28/18 with instructions to followup with Dr. Todd on 07/03/18 at 11:30 AM. He was to resume his home medications and return to the hospital should he have any concerning symptoms. Instructions for diet included low fat, low cholesterol diet. Activity is increase as tolerated but no lifting or pulling until seen by Dr. Todd. Wound management: May shower but no tub baths. Medications at discharge included home medications plus new medications includin. Albuterol inhaler 1 puff inhaled every 4 hours as needed. 1 inhaler. No refills. 2. Augmentin 875 mg every 12 hours, #14. 3. [place] 5/325 one every 4 hours as needed written by Dr. Todd. 4. Flagyl 500 mg every 8 hours, #21. No refills. 5. Prilosec 40 mg daily. No refills. DISCHARGE DISPOSITION: He was discharged to the care of family. Condition on discharge was stable and improved. #[id number] [facility]
== END 2018-06-28 11:00 | disposition home or self-care (01) | DRG 419 ==
LOC: ER 23:37 → MS 06-24 03:08 → OBSVTOIN 06-24 03:08
PROVIDERS: ADMIT Nurse Practitioner Acute Care; ATTEND Nurse Practitioner Family
PROC: 0FB14ZX Excision of Right Lobe Liver, Percutaneous Endoscopic Approach, Diagnostic (ICD-10-PCS; 2018-06-24)
PROC: BF131ZZ Fluoroscopy of Gallbladder and Bile Ducts using Low Osmolar Contrast (ICD-10-PCS; 2018-06-24)
PROC: 0FT44ZZ Resection of Gallbladder, Percutaneous Endoscopic Approach (ICD-10-PCS; principal; 2018-06-24 10:52)
DX: K80.00 Calculus of gallbladder with acute cholecystitis without obstruction (principal); K82.A1 Gangrene of gallbladder in cholecystitis; K76.0 Fatty (change of) liver, not elsewhere classified; N30.90 Cystitis, unspecified without hematuria; M10.9 Gout, unspecified; I10 Essential (primary) hypertension; K21.9 Gastro-esophageal reflux disease without esophagitis; E78.5 Hyperlipidemia, unspecified; R09.89 Other specified symptoms and signs involving the circulatory and respiratory systems; Z87.891 Personal history of nicotine dependence

== ENCOUNTER → 2020-08-03 | Outpatient (CLI) | payer OTHER | LOC: GMA MATASK 10:31 | PROVIDERS: ATTEND Family Medicine | DX: Z00.00 Encounter for general adult medical examination without abnormal findings (principal); Z12.5 Encounter for screening for malignant neoplasm of prostate ==